=== PATIENT | female | born 1990 | race African-American/Black ===

== ENCOUNTER 2018-01-29 09:14 | Inpatient (IN) | payer SELFPAY ==
[2018-01-29] MEDS ORDERED: MORPHINE SULFATE 4 MG/ML DISP.SYRIN. IV (09:45)
[2018-01-29] MEDS ORDERED: DOCUSATE SODIUM 100 MG CAPSULE. PO (09:45)
[2018-01-29] MEDS: fentaNYL PF VIAL 100 MCG/2 ML VIAL IV ×5 (11:14→22:29)
[2018-01-29] MEDS: diphenhydrAMINE 50 MG/ML VIAL IVP ×3 (11:14→22:29)
[2018-01-29] MEDS: PANTOPRAZOLE IV PUSH 40 MG VIAL. IVP (11:15)
[2018-01-29] MEDS: ALPRAZolam 1 MG TABLET PO ×2 (11:16→18:39)
[2018-01-29] MEDS: DOCUSATE SODIUM 100 MG CAPSULE. PO (11:16)
[2018-01-29] MEDS: IV NORMAL SALINE 1000ML BAG 1,000 ML IV ×2 (11:24→18:26)
[2018-01-29] MEDS: oxyCODONE/APAP 5/325 1 TAB TABLET PO ×2 (16:22→20:32)
[2018-01-29] MEDS: CYCLOBENZAPRINE 10 MG TABLET. PO (20:33)
[2018-01-30] MEDS: IV NORMAL SALINE 1000ML BAG 1,000 ML IV ×4 (00:33→21:14)
[2018-01-30] MEDS: fentaNYL PF VIAL 100 MCG/2 ML VIAL IV ×11 (00:33→23:29)
[2018-01-30] MEDS: CYCLOBENZAPRINE 10 MG TABLET. PO ×3 (02:39→18:44)
[2018-01-30] MEDS: ALPRAZolam 1 MG TABLET PO ×3 (02:39→18:44)
[2018-01-30 04:01] LABS: ADD MAN DIFF? NO
[2018-01-30 04:05] LABS: BASO # 0.1 x10^3/uL (0.0-0.2); BASO % 1 % (0-3); EOS # 0.3 x10^3/uL (0.0-0.7); EOS % 5 % (0-3); HEMATOCRIT 23.4 % (36.0-47.0); HEMOGLOBIN 8.3 g/dL (12.0-15.5); LYMPH # 2.5 x10^3/uL (1.0-4.8); LYMPH % 40 % (24-48); MEAN CORPUSCULAR HEMOGLOBIN 26 pg (25-35); MEAN CORPUSCULAR HGB CONC 35 g/dL (31-37); MEAN CORPUSCULAR VOLUME 74 fL (79-100); MONO # 0.5 x10^3/uL (0.0-1.1); MONO % 8 % (0-9); NEUT # 2.8 x10^3uL (1.8-7.7); NEUT % 46 % (31-73); PLATELET COUNT 524 x10^3/uL (140-400); RED BLOOD COUNT 3.15 x10^6/uL (3.50-5.40); RED CELL DISTRIBUTION WIDTH 16.9 % (11.5-14.5); WHITE BLOOD COUNT 6.1 x10^3/uL (4.0-11.0)
[2018-01-30 04:15] LABS: RETIC COUNT 0.9 % (0.5-2.5)
[2018-01-30 04:23] LABS: ALBUMIN/GLOBULIN RATIO 0.6 (1.0-1.7); ALK PHOS 50 U/L (46-116); ALT (SGPT) 15 U/L (14-59); ANION GAP 3 (6-14); AST (SGOT) 18 U/L (15-37); BLOOD UREA NITROGEN 3 mg/dL (7-20); BUN/CREATININE RATIO 6 (6-20); CALCIUM 7.6 mg/dL (8.5-10.1); CARBON DIOXIDE 32 mmol/L (21-32); CHLORIDE 108 mmol/L (98-107); CREATININE 0.5 mg/dL (0.6-1.0); GFR 176.5; GLUCOSE 95 mg/dL (70-99); POTASSIUM 3.6 mmol/L (3.5-5.1); SODIUM 143 mmol/L (136-145); TOTAL BILIRUBIN 0.2 mg/dL (0.2-1.0); TOTAL PROTEIN 5.2 g/dL (6.4-8.2)
[2018-01-30] MEDS: diphenhydrAMINE 50 MG/ML VIAL IVP ×4 (04:57→23:29)
[2018-01-30] MEDS: oxyCODONE/APAP 5/325 1 TAB TABLET PO ×2 (10:35→16:51)
[2018-01-30] MEDS: DOCUSATE SODIUM 100 MG CAPSULE. PO (11:32)
[2018-01-30] MEDS: PANTOPRAZOLE IV PUSH 40 MG VIAL. IVP (11:33)
[2018-01-30 11:52] LABS: % SAT IRON 7 % (15-34); IRON,SERUM 15 ug/dL (50-170)
[2018-01-30 12:05] LABS: ALK PHOS 46 U/L (46-116); ALT (SGPT) 17 U/L (14-59); AST (SGOT) 10 U/L (15-37); DIRECT BILIRUBIN < 0.1 mg/dL (0.0-0.2); FERRITIN 13 ng/mL (8-252); LACTATE DEHYDROGENASE 166 U/L (81-234); TOTAL BILIRUBIN 0.1 mg/dL (0.2-1.0); TOTAL PROTEIN 5.2 g/dL (6.4-8.2)
[2018-01-30] MEDS: IRON SUCROSE COMPLEX 200 MG in TOTAL VOLUME SYRINGE 0 ML IVP (14:29)
[2018-01-30] MEDS: GABAPENTIN 100 MG CAPSULE. PO ×2 (14:35→21:12)
[2018-01-31] MEDS: CYCLOBENZAPRINE 10 MG TABLET. PO ×3 (03:06→18:37)
[2018-01-31] MEDS: ALPRAZolam 1 MG TABLET PO ×3 (03:06→18:37)
[2018-01-31] MEDS: diphenhydrAMINE 50 MG/ML VIAL IVP ×4 (03:07→20:53)
[2018-01-31] MEDS: fentaNYL PF VIAL 100 MCG/2 ML VIAL IV ×10 (03:08→22:56)
[2018-01-31] MEDS: oxyCODONE/APAP 5/325 1 TAB TABLET PO ×3 (04:26→18:37)
[2018-01-31] MEDS: IV NORMAL SALINE 1000ML BAG 1,000 ML IV ×4 (04:45→21:45)
[2018-01-31 05:27] LABS: HEMATOCRIT 28.3 % (36.0-47.0); HEMOGLOBIN 9.7 g/dL (12.0-15.5); MEAN CORPUSCULAR HEMOGLOBIN 26 pg (25-35); MEAN CORPUSCULAR HGB CONC 34 g/dL (31-37); MEAN CORPUSCULAR VOLUME 76 fL (79-100); PLATELET COUNT 643 x10^3/uL (140-400); RED BLOOD COUNT 3.73 x10^6/uL (3.50-5.40); RED CELL DISTRIBUTION WIDTH 17.5 % (11.5-14.5); WHITE BLOOD COUNT 6.7 x10^3/uL (4.0-11.0)
[2018-01-31 05:52] LABS: ALBUMIN 2.7 g/dL (3.4-5.0); ALBUMIN/GLOBULIN RATIO 0.6 (1.0-1.7); ALK PHOS 66 U/L (46-116); ALT (SGPT) 24 U/L (14-59); ANION GAP 9 (6-14); AST (SGOT) 22 U/L (15-37); BLOOD UREA NITROGEN 3 mg/dL (7-20); BUN/CREATININE RATIO 5 (6-20); CALCIUM 8.5 mg/dL (8.5-10.1); CARBON DIOXIDE 28 mmol/L (21-32); CHLORIDE 106 mmol/L (98-107); CREATININE 0.6 mg/dL (0.6-1.0); GLUCOSE 82 mg/dL (70-99); POTASSIUM 3.7 mmol/L (3.5-5.1); SODIUM 143 mmol/L (136-145); TOTAL BILIRUBIN 0.1 mg/dL (0.2-1.0); TOTAL PROTEIN 7.3 g/dL (6.4-8.2)
[2018-01-31] MEDS: PANTOPRAZOLE IV PUSH 40 MG VIAL. IVP (06:21)
[2018-01-31] MEDS: GABAPENTIN 100 MG CAPSULE. PO ×3 (08:37→21:14)
[2018-01-31] MEDS: DOCUSATE SODIUM 100 MG CAPSULE. PO (08:37)
[2018-01-31 11:20] LABS: BODY FLUID CREATININE 0.5 mg/dL (.)
[2018-01-31 11:20] LABS: BODY FLUID AMYLASE 61 U/L (.)
[2018-02-01] MEDS: oxyCODONE/APAP 5/325 1 TAB TABLET PO ×2 (00:18→06:07)
[2018-02-01] MEDS: IV NORMAL SALINE 1000ML BAG 1,000 ML IV ×4 (00:18→22:27)
[2018-02-01] MEDS: CYCLOBENZAPRINE 10 MG TABLET. PO ×3 (01:59→22:27)
[2018-02-01] MEDS: fentaNYL PF VIAL 100 MCG/2 ML VIAL IV ×10 (01:59→23:42)
[2018-02-01] MEDS: ALPRAZolam 1 MG TABLET PO ×5 (02:53→19:05)
[2018-02-01] MEDS: diphenhydrAMINE 50 MG/ML VIAL IVP ×4 (02:53→21:42)
[2018-02-01] MEDS: PANTOPRAZOLE IV PUSH 40 MG VIAL. IVP (06:07)
[2018-02-01] MEDS: GABAPENTIN 100 MG CAPSULE. PO ×3 (08:27→21:41)
[2018-02-01] MEDS: DOCUSATE SODIUM 100 MG CAPSULE. PO (08:28)
[2018-02-01] MEDS: IRON SUCROSE COMPLEX 200 MG in TOTAL VOLUME SYRINGE 0 ML IVP (08:33)
[2018-02-01] MEDS ORDERED: IRON SUCROSE COMPLEX 200 MG in IV NORMAL SALINE 100ML 100 ML IV (09:00)
[2018-02-01 13:24] LABS: HGB A 60.2 % (96.4-98.8); HGB A2 3.1 % (1.8-3.2); HGB C 36.7 % (0.0); HGB ELECROPHORESIS COMMENT Note: (.); HGB SOLUBILITY Negative (Negative)
[2018-02-01] MEDS ORDERED: POLYETHYLENE GLYCOL 3350 17 GM PACKET. PO (14:45)
[2018-02-02] MEDS: fentaNYL PF VIAL 100 MCG/2 ML VIAL IV ×9 (01:41→18:04)
[2018-02-02] MEDS: CYCLOBENZAPRINE 10 MG TABLET. PO ×3 (03:51→15:59)
[2018-02-02] MEDS: diphenhydrAMINE 50 MG/ML VIAL IVP ×3 (03:51→16:00)
[2018-02-02] MEDS: ALPRAZolam 1 MG TABLET PO ×3 (03:51→18:04)
[2018-02-02] MEDS: IV NORMAL SALINE 1000ML BAG 1,000 ML IV ×2 (05:46→13:59)
[2018-02-02 05:50] LABS: ADD MAN DIFF? NO
[2018-02-02 06:14] LABS: ANION GAP 6 (6-14); BLOOD UREA NITROGEN 5 mg/dL (7-20); CALCIUM 7.9 mg/dL (8.5-10.1); CARBON DIOXIDE 29 mmol/L (21-32); CHLORIDE 108 mmol/L (98-107); CREATININE 0.6 mg/dL (0.6-1.0); GLUCOSE 95 mg/dL (70-99); POTASSIUM 3.9 mmol/L (3.5-5.1); SODIUM 143 mmol/L (136-145)
[2018-02-02 06:15] LABS: BASO # 0.1 x10^3/uL (0.0-0.2); BASO % 1 % (0-3); EOS # 0.3 x10^3/uL (0.0-0.7); EOS % 5 % (0-3); HEMATOCRIT 25.8 % (36.0-47.0); HEMOGLOBIN 8.9 g/dL (12.0-15.5); LYMPH # 2.7 x10^3/uL (1.0-4.8); LYMPH % 45 % (24-48); MEAN CORPUSCULAR HEMOGLOBIN 26 pg (25-35); MEAN CORPUSCULAR HGB CONC 35 g/dL (31-37); MEAN CORPUSCULAR VOLUME 74 fL (79-100); MONO # 0.4 x10^3/uL (0.0-1.1); MONO % 7 % (0-9); NEUT # 2.6 x10^3uL (1.8-7.7); NEUT % 42 % (31-73); PLATELET COUNT 510 x10^3/uL (140-400); RED BLOOD COUNT 3.48 x10^6/uL (3.50-5.40); RED CELL DISTRIBUTION WIDTH 17.3 % (11.5-14.5); WHITE BLOOD COUNT 6.1 x10^3/uL (4.0-11.0)
[2018-02-02] MEDS: PANTOPRAZOLE 40 MG TABLET.DR. PO (07:48)
[2018-02-02] MEDS: GABAPENTIN 100 MG CAPSULE. PO ×2 (10:00→13:58)
[2018-02-02] MEDS: oxyCODONE/APAP 5/325 1 TAB TABLET PO ×2 (10:00→18:05)
[2018-02-02] MEDS: DOCUSATE SODIUM 100 MG CAPSULE. PO (10:01)
[2018-02-02] MEDS ORDERED: BISACODYL 10 MG SUPP.RECT. PR (13:30)
[2018-02-02] MEDS: POLYETHYLENE GLYCOL 3350 17 GM PACKET. PO (13:58)
== END 2018-02-02 19:27 | disposition home or self-care (01) | DRG 919 ==
LOC: 4 NORTH 09:14
PROVIDERS: Internal Medicine
PROC: 02HV33Z Insertion of Infusion Device into Superior Vena Cava, Percutaneous Approach (ICD-10-PCS; principal; 2018-01-29)
PROC: 4A02X4A Measurement of Cardiac Electrical Activity, Guidance, External Approach (ICD-10-PCS; 2018-01-29)
DX: T85.9XXA Unspecified complication of internal prosthetic device, implant and graft, initial encounter (principal); K63.1 Perforation of intestine (nontraumatic); K25.6 Chronic or unspecified gastric ulcer with both hemorrhage and perforation; K50.011 Crohn's disease of small intestine with rectal bleeding; D57.1 Sickle-cell disease without crisis; F11.20 Opioid dependence, uncomplicated; G89.28 Other chronic postprocedural pain; N83.209 Unspecified ovarian cyst, unspecified side; D50.9 Iron deficiency anemia, unspecified; F41.9 Anxiety disorder, unspecified; G89.29 Other chronic pain; K62.89 Other specified diseases of anus and rectum; Z87.11 Personal history of peptic ulcer disease; Z90.49 Acquired absence of other specified parts of digestive tract; Z88.5 Allergy status to narcotic agent; Z88.8 Allergy status to other drugs, medicaments and biological substances
CPT/HCPCS: 36415; 36569; 74176; 76830; 76856; 80048; 80053; 80076; 82150; 82570; 82728; 83020; 83540; 83550; 83615; 85025; 85027; 85045; 87040; C9113; J1200; J1756; J3010; J7030